=== PATIENT | male | born 1970 | race Caucasian/White ===

== ENCOUNTER 2017-12-23 09:14 | Emergency (ER) | payer OTHER ==
[2017-12-23 09:24] VITALS: BP 143/78
--- NOTE | 2017-12-23 10:14 | UC ---
Skin Complaint HPI - HPI Summary HPI Summary: 47-year-old male presents with onset of a circular erythematous, pruritic rash to his left upper leg following a tick bite 10 days ago. States removed tick immediately. Unsure how long it was attached however does not think it is engorged. Denies fever, chills, flulike symptoms, myalgias, joint pain or swelling. - History of Current Complaint Chief Complaint: [facility]kin Time Seen by Provider: 12/23/17 10:01 Stated Complaint: TICK BITE Hx Obtained From: Patient Onset/Duration: Sudden Onset Pain Intensity: 0 Location: Discrete - Left upper leg Character: Pruritus, Redness Aggravating Factor(s): Nothing Alleviating Factor(s): Nothing - Allergy/Home Medications Allergies/Adverse Reactions: Allergies Allergy/AdvReac Type Severity Reaction Status Date / Time No Known Allergies Allergy Verified 12/23/17 09:23 Review of Systems Constitutional: Negative Skin: Rash - See HPI Respiratory: Negative Cardiovascular: Negative Musculoskeletal: Negative Is Patient Immunocompromised?: No All Other Systems Reviewed And Are Negative: Yes PMH/Surg Hx/FS Hx/Imm Hx Previously Healthy: Yes - Denies significant PMH - Surgical History Surgical History: Yes Surgery Procedure, Year, and Place: tonsillectomy - Family History Family History: Noncontributory - Social History Occupation: Employed Full-time Lives: With Family Alcohol Use: Occasionally Substance Use Type: None Smoking Status (MU): Never Smoked Tobacco - Immunization History Most Recent Tetanus Shot: 2011 Physical Exam Triage Information Reviewed: Yes Appearance: Well-Appearing, No Pain Distress, Well-Nourished Vital Signs: Initial Vital Signs Temp 97.3 F 12/23/17 09:18 Pulse 86 12/23/17 09:18 Resp 16 12/23/17 09:18 BP 143/78 12/23/17 09:18 Pulse Ox 99 12/23/17 09:18 Respiratory: Positive: Lungs clear, Normal breath sounds, No respiratory distress Cardiovascular: Positive: RRR, No Murmur Musculoskeletal Exam: Normal Neurological: Positive: Alert Skin: Positive: significant lesion(s) - 3 cm circular, erythematous, rash to left upper leg Course/Dx - Course Course Of Treatment: 47 year old male with onset of rash to left upper leg 10 days after tick bite. He is otherwise assymptomatic however considering the timing will treat for Lyme with 14 day course of doxycycline. - Diagnoses Provider Diagnoses: Tick bite of left upper leg Discharge - Sign-Out/Discharge Documenting (check all that apply): Patient Departure All imaging exams completed and their final reports reviewed: No Studies - Discharge Plan Condition: Stable Disposition: HOME Prescriptions: Doxycycline Hyclate 100 mg PO BID 14 Days #28 tablet Patient Education Materials: Tick Bite (ED) Referrals: No Primary Care Phys,NOPCP [Primary Care Provider] - Additional Instructions: Your rash is not the classic bullseye rash however the timing of your rash is suspicious for Lyme disease therefore we will treat it as such. Take doxycycline 1 tab twice a day for 14 days. Do not take with mild products as this can affect the absorption of the antibiotic. This antibiotic will also make you more sensitive to sunlight so take precautions if you are outdoors. Seek immediate medical attention if you develop fever greater than 100.5 F, swelling of the lips, tongue, throat, have any difficulty breathing, or worsening of symptoms. - Billing Disposition and Condition Condition: STABLE Disposition: Home
== END 2017-12-23 10:20 | disposition home or self-care (01) ==
LOC: UCEAST 09:14
DX: S80.862A Insect bite (nonvenomous), left lower leg, initial encounter (principal); W57.XXXA Bitten or stung by nonvenomous insect and other nonvenomous arthropods, initial encounter; Y92.9 Unspecified place or not applicable
CPT/HCPCS: 12001; 99212; G0463